=== PATIENT | female | born 1970 | race Caucasian/White ===

== ENCOUNTER 2022-05-20 13:28 | Emergency (ER) | payer BC ==
[~2022-05-20] VITALS: Ht 170.2 cm; Wt 93.2 kg
[2022-05-20 14:25] LABS: EOSINOPHILS % (AUTO) 0.3 % (0-6); HEMOGLOBIN 9.9 g/dl (12.0-16.0); LYMPHOCYTES # (AUTO) 2.2 X10'3 (1.1-4.8); MEAN PLATELET VOLUME 6.5 FL (7.4-10.4)
[2022-05-20 14:27] LABS: BASOPHILS % (AUTO) 0.4 % (0-1); HEMATOCRIT 32.3 % (35.0-45.0); LYMPHOCYTES % (AUTO) 21.6 % (21-51); MEAN CORPUSCULAR HEMOGLOBIN 20.6 PG (27.0-31.0); MEAN CORPUSCULAR HGB CONC 30.7 g/dL (33.0-36.5); MEAN CORPUSCULAR VOLUME 67.3 FL (78-98); MONOCYTES # (AUTO) 0.5 X10'3 (0-0.9); MONOCYTES % (AUTO) 5.4 % (2-12); NEUTROPHILS # (AUTO) 7.3 X10'3 (1.8-7.7); NEUTROPHILS % (AUTO) 72.3 % (42-75); PLATELET COUNT 603 X10'3 (140-440); WHITE BLOOD COUNT 10.1 X10'3 (4.5-11.0)
[2022-05-20 14:30] LABS: ALANINE AMINOTRANSFERASE 19 U/L (12-78); ALBUMIN 3.6 G/DL (3.4-5.0); ALBUMIN/GLOBULIN RATIO 0.8 (1.1-1.5); ALKALINE PHOSPHATASE 43 IU/L (46-116); ASPARTATE AMINO TRANSFERASE 17 U/L (10-37); BILIRUBIN,TOTAL 0.3 MG/DL (0.1-1.0); BLOOD UREA NITROGEN 13 MG/DL (7-18); BUN/CREATININE RATIO 14.1 (6.6-38.0); CALCIUM 9.4 MG/DL (8.5-10.1); CHLORIDE 102 MMOL/L (99-107); CREATININE 0.92 MG/DL (0.40-0.90); GLUCOSE 132 MG/DL (70-104); MAGNESIUM 2.2 MG/DL (1.5-2.4); POTASSIUM 3.7 MMOL/L (3.5-5.1); TOTAL CARBON DIOXIDE 21.3 MMOL/L (24-32); TOTAL PROTEIN 8.2 G/DL (6.4-8.2); eGFR 64 ML/MIN
[2022-05-20 14:33] LABS: ANION GAP 13 (8-16); SODIUM 136 MMOL/L (135-145)
[2022-05-20] MEDS ORDERED: normal saline 1000ML IV soln IVB ONE (14:35)
[2022-05-20 14:51] LABS: D-DIMER 1.02 MG/L FEU (0-0.50)
[2022-05-20 15:35] LABS: PLATELET ESTIMATE INCREASED
[2022-05-20 15:36] LABS: ANISOCYTOSIS 1+; MICROCYTOSIS 2+
[2022-05-20 16:59] VITALS: BP 111/82
== END 2022-05-20 17:17 | disposition home or self-care (01) ==
LOC: ER 13:28
DX: I48.91 Unspecified atrial fibrillation (principal)
CPT/HCPCS: 36415; 71045; 71275; 80053; 83735; 83880; 84443; 84484; 85008; 85025; 85379; 93005; 96360; 96361; 99285; J7030